=== PATIENT | female | born 1955 | race Caucasian/White ===

== ENCOUNTER 2016-05-13 17:15 | Observation (INO) | payer BC ==
[~2016-05-13] VITALS: Ht 154.9 cm; Wt 49.9 kg
[~2016-05-13 17:15] MED LIST: ATORVASTATIN CA20 MG PO; CLOPIDOGREL75 MG PO; FLONASE16 G1 BOTH NARES; GABAPENTIN300 MG PO; LO-DOSE ASPIRIN81 M2 PO; MONTELUKAST SOD10 MG PO; PROAIR HFA8.5 GM IH; SPIRIVA RESPIMAT4 GM IH; SYMBICORT60 INHALAT IH; TRAMADOL HCL50 MG PO; [UNRECOGNIZED DRUG - REMARK] PO
[2016-05-13 17:36] LABS: HEMATOCRIT 41.2 % (36.0-46.0); MCH 30.2 PG (29.0-34.0); MCHC 33.3 G/DL (30.0-36.0); MCV 90.7 FL (83-99); MEAN PLAT.VOLUME 8.8 uM^3 (9.5-12.4); PLATELET COUNT 382 K/uL (156-360); RBC DIS.WIDTH-CV 12.8 % (11.8-14.6); RBC DIS.WIDTH-SD 42.2 % (39-53); RED BLOOD COUNT 4.54 M/uL (3.80-5.20); WHITE BLOOD COUNT 7.6 K/uL (4.1-10.2)
[2016-05-13 17:53] LABS: CHLORIDE 100 mEq/L (99-109); POTASSIUM 3.6 mEq/L (3.7-5.4); SODIUM 140 mEq/L (136-147)
[2016-05-13 17:55] LABS: GLUCOSE 99 mg/dL (70-99)
[2016-05-13 17:56] LABS: ANION GAP 10 MEQ/L (2-14)
[2016-05-13 17:59] LABS: GFR ESTIMATE (CALCULATED) > 59 mL/min/
[2016-05-13 18:00] LABS: UREA NITROGEN (BUN) 9 mg/dL (9-23)
[2016-05-13 18:03] LABS: TROP-I INTERPRETATION NEGATIVE; TROPONIN-I < 0.01 ng/mL (0.0-0.30)
[2016-05-13 20:10] LABS: LIPASE 29 U/L (1.0-51.0)
[2016-05-13 20:55] VITALS: BP 133/72
[2016-05-13 23:59] LABS: TROP-I INTERPRETATION NEGATIVE; TROPONIN-I < 0.01 ng/mL (0.0-0.30)
[2016-05-14 00:10] VITALS: BP 107/56
[2016-05-14 04:09] VITALS: BP 107/57
[2016-05-14 06:30] LABS: TROP-I INTERPRETATION NEGATIVE; TROPONIN-I < 0.01 ng/mL (0.0-0.30)
[2016-05-14 07:44] VITALS: BP 115/56
[2016-05-14] MEDS ORDERED: LOPRESSOR25 MG PO (09:57)
== END 2016-05-14 11:33 | disposition home or self-care (01) ==
LOC: EME 17:15 → 5WEST 19:01 → EDOF 19:01 → 5WEST 20:03
PROVIDERS: Hospitalist
DX: R07.89 Other chest pain (principal); I25.10 Atherosclerotic heart disease of native coronary artery without angina pectoris; I10 Essential (primary) hypertension; J44.9 Chronic obstructive pulmonary disease, unspecified; E78.5 Hyperlipidemia, unspecified; F17.210 Nicotine dependence, cigarettes, uncomplicated; Z95.5 Presence of coronary angioplasty implant and graft
CPT/HCPCS: 71020; 80048; 83690; 84484; 85027; 93005; 94640; 99202; 99281; 99285; G0378

== ENCOUNTER 2016-05-23 11:50 | Observation (INO) | payer BC ==
[~2016-05-23] VITALS: Ht 154.9 cm; Wt 57.4 kg
[~2016-05-23 11:50] MED LIST changes: +LOPRESSOR25 MG PO
[2016-05-23 12:53] LABS: EOSINOPHIL (%) 1.4 % (0-5); EOSINOPHIL COUNT 0.1 K/uL (0-0.3); HEMATOCRIT 38.2 % (36.0-46.0); IMMATURE GRANULOCYTE (%) 0.3 % (0.0-0.7); LYMPHOCYTE COUNT 1.7 K/uL (1.0-2.8); MCH 30.2 PG (29.0-34.0); MCHC 33.2 G/DL (30.0-36.0); MCV 90.7 FL (83-99); MEAN PLAT.VOLUME 10.1 uM^3 (9.5-12.4); MONOCYTE (%) 8.2 % (3-12); MONOCYTE COUNT 0.8 K/uL (0-0.8); NEUTROPHIL (%) 72.3 % (45-76); PLATELET COUNT 276 K/uL (156-360); RBC DIS.WIDTH-CV 12.9 % (11.8-14.6); RBC DIS.WIDTH-SD 42.2 % (39-53); RED BLOOD COUNT 4.21 M/uL (3.80-5.20); WHITE BLOOD COUNT 9.7 K/uL (4.1-10.2)
[2016-05-23 13:00] LABS: CHLORIDE 98 mEq/L (99-109); POTASSIUM 3.4 mEq/L (3.7-5.4); SODIUM 136 mEq/L (136-147)
[2016-05-23 13:01] LABS: MAGNESIUM 2.1 mg/dL (1.3-2.7)
[2016-05-23 13:02] LABS: GLUCOSE 82 mg/dL (70-99)
[2016-05-23 13:03] LABS: ANION GAP 11 MEQ/L (2-14)
[2016-05-23 13:06] LABS: GFR ESTIMATE (CALCULATED) > 59 mL/min/
[2016-05-23 13:07] LABS: UREA NITROGEN (BUN) 9 mg/dL (9-23)
[2016-05-23 13:13] LABS: PROTHROMBIN TIME 10.5 (9.2-11.2); PTT 26.4 (25-32); TROP-I INTERPRETATION NEGATIVE; TROPONIN-I < 0.01 ng/mL (0.0-0.30)
[2016-05-23 15:04] LABS: INFLUENZA A VIRAL ANTIGEN NEGATIVE; INFLUENZA B VIRAL ANTIGEN NEGATIVE
[2016-05-23] MEDS ORDERED: LOPRESSOR25 MG PO (15:18)
[2016-05-23] MEDS ORDERED: NORVASC5 MG PO (15:19)
[2016-05-23] MEDS ORDERED: SINGULAIR10 MG PO (15:26)
[2016-05-23] MEDS ORDERED: HYDROCHLOROTHIA25 MG PO (15:27)
[2016-05-23 17:11] VITALS: BP 101/52
[2016-05-23 19:40] VITALS: BP 108/57
[2016-05-23 19:53] LABS: TROP-I INTERPRETATION NEGATIVE; TROPONIN-I < 0.01 ng/mL (0.0-0.30)
[2016-05-24 00:45] VITALS: BP 121/68
[2016-05-24 01:18] LABS: TROP-I INTERPRETATION NEGATIVE; TROPONIN-I < 0.01 ng/mL (0.0-0.30)
[2016-05-24 07:27] VITALS: BP 110/68
[2016-05-24 08:00] VITALS: BP 133/79
[2016-05-24 10:39] VITALS: BP 134/69
== END 2016-05-24 13:28 | disposition home or self-care (01) ==
LOC: EME → EDBD 11:50 → 5WEST 15:49 → EDOF 15:49 → 5WEST 16:48
PROVIDERS: Emergency Medicine; Internal Medicine
DX: R07.89 Other chest pain (principal); E87.6 Hypokalemia; J44.9 Chronic obstructive pulmonary disease, unspecified; I25.10 Atherosclerotic heart disease of native coronary artery without angina pectoris; Z95.1 Presence of aortocoronary bypass graft; I10 Essential (primary) hypertension; E78.5 Hyperlipidemia, unspecified; F17.200 Nicotine dependence, unspecified, uncomplicated
CPT/HCPCS: 71010; 80048; 83735; 84484; 85025; 85610; 85730; 87502; 93005; 94640; 99202; 99281; 99285; G0378; J7512

== ENCOUNTER 2016-06-11 22:53 | Inpatient (IN) | payer BC ==
[~2016-06-11] VITALS: Ht 154.9 cm; Wt 51.3 kg
[~2016-06-11 22:53] MED LIST changes: +HYDROCHLOROTHIA25 MG PO; +NORVASC5 MG PO; +SINGULAIR10 MG PO
[2016-06-11 23:28] LABS: HEMATOCRIT 36.1 % (36.0-46.0); MCH 30.1 PG (29.0-34.0); MCHC 34.6 G/DL (30.0-36.0); MEAN PLAT.VOLUME 9.3 uM^3 (9.5-12.4); PLATELET COUNT 338 K/uL (156-360); RBC DIS.WIDTH-CV 12.9 % (11.8-14.6); RBC DIS.WIDTH-SD 40.5 % (39-53); RED BLOOD COUNT 4.15 M/uL (3.80-5.20)
[2016-06-11 23:31] LABS: WHITE BLOOD COUNT 8.8 K/uL (4.1-10.2)
[2016-06-11 23:43] LABS: CHLORIDE 88 mEq/L (99-109); POTASSIUM 3.4 mEq/L (3.7-5.4); SODIUM 131 mEq/L (136-147)
[2016-06-11 23:45] LABS: GLUCOSE 123 mg/dL (70-99)
[2016-06-11 23:46] LABS: ANION GAP 11 MEQ/L (2-14)
[2016-06-11 23:47] LABS: TOTAL BILIRUBIN 0.4 mg/dL (0.0-1.0)
[2016-06-11 23:49] LABS: ALKALINE PHOSPHATASE 94 IU/L (3-129); GFR ESTIMATE (CALCULATED) > 59 mL/min/
[2016-06-11 23:50] LABS: UREA NITROGEN (BUN) 8 mg/dL (9-23)
[2016-06-11 23:52] LABS: LIPASE 13 U/L (1.0-51.0)
[2016-06-11 23:53] LABS: TROP-I INTERPRETATION NEGATIVE; TROPONIN-I < 0.01 ng/mL (0.0-0.30)
[2016-06-12] MEDS ORDERED: ERGOCALCIF50000 UNIT PO (00:26)
[2016-06-12] MEDS ORDERED: ULTRAM50 MG PO (00:26)
[2016-06-12] MEDS ORDERED: FLONASE16 G1 BOTH NARES (00:27)
[2016-06-12 04:18] VITALS: BP 129/78
[2016-06-12 06:53] LABS: ANION GAP 13 MEQ/L (2-14); CHLORIDE 85 MEQ/L (99-109); GFR ESTIMATE (CALCULATED) > 59 mL/min/; POTASSIUM 3.3 MEQ/L (3.7-5.4); SAMPLE HEMOLYSIS CHECK 0; SAMPLE ICTERIC CHECK 0; SAMPLE LIPEMIA CHECK 0; SODIUM 128 MEQ/L (136-147); UREA NITROGEN (BUN) 10 mg/dL (9-23)
[2016-06-12 07:01] LABS: GLUCOSE 235 mg/dL (70-99)
[2016-06-12 08:45] VITALS: BP 112/62
[2016-06-12 08:59] LABS: ADD MIUA? YES; BILIRUBIN NEGATIVE; BLOOD MODERATE; COLOR YELLOW ((YELLOW)); GLUCOSE (STRIP) 150; KETONES 5; LEUKOCYTES NEGATIVE; NITRITE NEGATIVE; PROTEIN (STRIP) NEGATIVE; SPECIFIC GRAVITY 1.012 (1.000-1.030); UROBILINOGEN 0.2 MG/DL (0.2-1.0)
[2016-06-12 09:18] LABS: BACTERIA NONE SEEN /HPF; EPITHELIAL CELLS RARE /HPF; HYALINE CASTS 20-30 /LPF; MUCUS TRACE /LPF; WHITE BLOOD CELLS 0-5 /HPF (0-5)
[2016-06-12 12:19] VITALS: BP 118/60
[2016-06-12 17:05] VITALS: BP 124/58
[2016-06-12 20:27] VITALS: BP 119/57
[2016-06-12 23:42] VITALS: BP 109/53
[2016-06-13 03:56] VITALS: BP 105/53
[2016-06-13 08:40] VITALS: BP 110/59
[2016-06-13 09:56] LABS: HEMATOCRIT 34.7 % (36.0-46.0); MCH 30.3 PG (29.0-34.0); MCHC 34.3 G/DL (30.0-36.0); MCV 88.3 FL (83-99); MEAN PLAT.VOLUME 9.3 uM^3 (9.5-12.4); PLATELET COUNT 413 K/uL (156-360); RBC DIS.WIDTH-CV 13.1 % (11.8-14.6); RBC DIS.WIDTH-SD 42.7 % (39-53); RED BLOOD COUNT 3.93 M/uL (3.80-5.20)
[2016-06-13 10:12] LABS: ANION GAP 9 MEQ/L (2-14); CHLORIDE 91 MEQ/L (99-109); GFR ESTIMATE (CALCULATED) > 59 mL/min/; GLUCOSE 126 mg/dL (70-99); POTASSIUM 3.7 MEQ/L (3.7-5.4); SAMPLE HEMOLYSIS CHECK 0; SAMPLE ICTERIC CHECK 0; SAMPLE LIPEMIA CHECK 0; SODIUM 135 MEQ/L (136-147); UREA NITROGEN (BUN) 15 mg/dL (9-23)
[2016-06-13 10:16] LABS: WHITE BLOOD COUNT 21.1 K/uL (4.1-10.2)
[2016-06-13 11:43] VITALS: BP 101/57
[2016-06-13 15:45] VITALS: BP 104/58
[2016-06-13 19:00] VITALS: BP 101/56
[2016-06-13 23:58] VITALS: BP 137/64
[2016-06-14 03:51] VITALS: BP 108/60
[2016-06-14 08:40] VITALS: BP 115/56
[2016-06-14 11:37] VITALS: BP 97/54
[2016-06-14 13:09] LABS: HEMATOCRIT 34.8 % (36.0-46.0); MCH 30.1 PG (29.0-34.0); MCHC 33.3 G/DL (30.0-36.0); MCV 90.2 FL (83-99); MEAN PLAT.VOLUME 9.2 uM^3 (9.5-12.4); PLATELET COUNT 400 K/uL (156-360); RBC DIS.WIDTH-CV 13.2 % (11.8-14.6); RBC DIS.WIDTH-SD 43.6 % (39-53); RED BLOOD COUNT 3.86 M/uL (3.80-5.20); WHITE BLOOD COUNT 14.8 K/uL (4.1-10.2)
[2016-06-14] MEDS ORDERED: LEVOFLOXACIN750 MG PO (14:16)
[2016-06-14] MEDS ORDERED: PREDNISONE10 MG PO (14:16)
== END 2016-06-14 15:31 | disposition home or self-care (01) | DRG 191 ==
LOC: EME → EDBD 22:53 → EME 22:53 → EDOF 06-12 03:20 → 5WEST 06-12 03:20
PROVIDERS: Emergency Medicine; Hospitalist; Nurse Practitioner Family
DX: J44.1 Chronic obstructive pulmonary disease with (acute) exacerbation (principal); J44.0 Chronic obstructive pulmonary disease with (acute) lower respiratory infection; J20.9 Acute bronchitis, unspecified; E87.6 Hypokalemia; E87.1 Hypo-osmolality and hyponatremia; E87.2 Acidosis; I25.10 Atherosclerotic heart disease of native coronary artery without angina pectoris; I25.2 Old myocardial infarction; J45.909 Unspecified asthma, uncomplicated; E78.5 Hyperlipidemia, unspecified; M79.7 Fibromyalgia; F17.210 Nicotine dependence, cigarettes, uncomplicated; Z95.1 Presence of aortocoronary bypass graft; Z95.5 Presence of coronary angioplasty implant and graft; Z71.6 Tobacco abuse counseling; Z79.02 Long term (current) use of antithrombotics/antiplatelets; Z79.82 Long term (current) use of aspirin
CPT/HCPCS: 71010; 80048; 80053; 81003; 82436; 82803; 83690; 83880; 83930; 84133; 84300; 84484; 85027; 87070; 87205; 93005; 94640; 94640 76; 94644; 94799; 99202; 99281; 99285; J1100; J1650; J2930; J3475; J7644

== ENCOUNTER 2016-10-11 18:05 | Inpatient (IN) | payer OTHER ==
[~2016-10-11 18:05] MED LIST changes: +ERGOCALCIF50000 UNIT PO; +LEVOFLOXACIN750 MG PO; +PREDNISONE10 MG PO; +ULTRAM50 MG PO
[2016-10-11 19:38] LABS: EOSINOPHIL (%) 0.3 % (0-5); EOSINOPHIL COUNT 0.1 K/uL (0-0.3); HEMATOCRIT 37.3 % (36.0-46.0); IMMATURE GRANULOCYTE (%) 0.5 % (0.0-0.7); IMMATURE GRANULOCYTE COUNT 0.1 K/uL; INSTRUMENT ABS NEUTROPHIL CT 16.9 K/uL; LYMPHOCYTE COUNT 1.2 K/uL (1.0-2.8); MCH 29.8 PG (29.0-34.0); MCHC 34.3 G/DL (30.0-36.0); MCV 86.9 FL (83-99); MEAN PLAT.VOLUME 9.7 uM^3 (9.5-12.4); MONOCYTE (%) 7.8 % (3-12); MONOCYTE COUNT 1.5 K/uL (0-0.8); NEUTROPHIL (%) 84.9 % (45-76); NEUTROPHIL COUNT 16.9 K/uL (1.8-6.4); PLATELET COUNT 244 K/uL (156-360); RBC DIS.WIDTH-CV 15.9 % (11.8-14.6); RBC DIS.WIDTH-SD 50.1 % (39-53); RED BLOOD COUNT 4.29 M/uL (3.80-5.20); WHITE BLOOD COUNT 19.8 K/uL (4.1-10.2)
[2016-10-11 19:45] LABS: CHLORIDE 90 mEq/L (99-109); POTASSIUM 3.2 mEq/L (3.7-5.4); SODIUM 129 mEq/L (136-147)
[2016-10-11 19:46] LABS: GLUCOSE 154 mg/dL (70-99)
[2016-10-11 19:48] LABS: ANION GAP 11 MEQ/L (2-14)
[2016-10-11 19:50] LABS: GFR ESTIMATE (CALCULATED) > 59 mL/min/
[2016-10-11 19:51] LABS: UREA NITROGEN (BUN) 11 mg/dL (9-23)
[2016-10-11 19:57] LABS: TROP-I INTERPRETATION NEGATIVE; TROPONIN-I < 0.01 ng/mL (0.0-0.30)
[2016-10-11 20:08] LABS: BASE EXCESS 0.9 mEq/L (-3 to +3); BICARBONATE 29.4 mEq/L (22-26); PCO2 64 mm Hg (35-45); PO2 51 mm Hg (80-100)
[2016-10-11 20:09] LABS: COMMENTS - BLOOD GASES A+C+; DEVICE NC; O2 FLOW 4 L/MIN; SITE RR; pH 7.27 (7.35-7.45)
[2016-10-12] VITALS (23 sets, daily range): BP systolic 84–151; BP diastolic 52–88
[2016-10-12 01:51] LABS: METH RESISTANT S AUREUS PCR NEGATIVE (NEGATIVE)
[2016-10-12 01:55] LABS: PROBE CHECK PASS; SPECIMEN PROCESSING CONTROL PASS
[2016-10-12 02:46] LABS: POINT-OF-CARE METER ID UU14208751
[2016-10-12] MEDS ORDERED: SPIRIVA RESPIMAT4 G1 IH (05:03)
[2016-10-12] MEDS ORDERED: LIPITOR20 MG PO (05:04)
[2016-10-12] MEDS ORDERED: SINGULAIR10 MG PO (05:04)
[2016-10-12] MEDS ORDERED: NORVASC5 MG PO (05:05)
[2016-10-12] MEDS ORDERED: PLAVIX75 MG PO (05:07)
[2016-10-12] MEDS ORDERED: SYMBICORT60 INHALA1 IH (05:07)
[2016-10-12] MEDS ORDERED: FLONASE16 G1 BOTH NARES (05:09)
[2016-10-12] MEDS ORDERED: HYDROCHLOROTHIA25 MG PO (05:09)
[2016-10-12] MEDS ORDERED: NEURONTIN300 MG PO (05:09)
[2016-10-12] MEDS ORDERED: ASPIR 8181 M1 PO (05:10)
[2016-10-12] MEDS ORDERED: ZYRTEC10 M2 PO (05:10)
[2016-10-12 06:03] LABS: HEMATOCRIT 34.6 % (36.0-46.0); MCH 29.5 PG (29.0-34.0); MCHC 32.7 G/DL (30.0-36.0); MCV 90.3 FL (83-99); MEAN PLAT.VOLUME 10.3 uM^3 (9.5-12.4); PLATELET COUNT 221 K/uL (156-360); RBC DIS.WIDTH-CV 15.9 % (11.8-14.6); RED BLOOD COUNT 3.83 M/uL (3.80-5.20); WHITE BLOOD COUNT 13.3 K/uL (4.1-10.2)
[2016-10-12 06:19] LABS: BASE EXCESS 2.4 mEq/L (-3 to +3); BICARBONATE 30.3 mEq/L (22-26); COMMENTS - BLOOD GASES A+C+; DEVICE VENT; FI02 50 %; MECHANICAL RATE 18 resp/min; METHEMOGLOBIN 1.2 % (0-1.5); MODE A/C; PCO2 63 mm Hg (35-45); PEEP 5 CM/H20; PO2 127 mm Hg (80-100); SITE RR; TIDAL VOLUME 350 ML; TOTAL RESP RATE 18 resp/min; pH 7.29 (7.35-7.45)
[2016-10-12 06:30] LABS: ANION GAP 8 MEQ/L (2-14); CHLORIDE 96 MEQ/L (99-109); GFR ESTIMATE (CALCULATED) > 59 mL/min/; GLUCOSE 161 mg/dL (70-99); MAGNESIUM 2.2 mg/dl (1.3-2.7); POTASSIUM 3.4 MEQ/L (3.7-5.4); SAMPLE HEMOLYSIS CHECK 0; SAMPLE ICTERIC CHECK 0; SAMPLE LIPEMIA CHECK 0; SODIUM 133 MEQ/L (136-147); UREA NITROGEN (BUN) 9 mg/dL (9-23)
[2016-10-12 06:34] LABS: POINT-OF-CARE METER ID UU14208751
[2016-10-12 13:22] LABS: BICARBONATE 27.9 mEq/L (22-26); CARBOXY HGB 2.1 % (0-5); METHEMOGLOBIN 1.7 % (0-1.5); pH 7.42 (7.35-7.45)
[2016-10-12 13:23] LABS: COMMENTS - BLOOD GASES A+C+; DEVICE VENT; FI02 30 %; MECHANICAL RATE 20 resp/min; MODE AC; PCO2 43 mm Hg (35-45); PEEP 5 CM/H20; PO2 57 mm Hg (80-100); SITE RR; TIDAL VOLUME 450 ML; TOTAL RESP RATE 20 resp/min
[2016-10-12 13:26] LABS: POINT-OF-CARE METER ID UU14174217
[2016-10-12 14:04] LABS: ADD MIUA? YES; BILIRUBIN NEGATIVE; BLOOD MODERATE; COLOR YELLOW ((YELLOW)); GLUCOSE (STRIP) NEGATIVE; KETONES NEGATIVE; LEUKOCYTES NEGATIVE; NITRITE NEGATIVE; PROTEIN (STRIP) 30; SPECIFIC GRAVITY 1.026 (1.000-1.030); UROBILINOGEN 0.2 MG/DL (0.2-1.0)
[2016-10-12 14:09] LABS: BACTERIA RARE /HPF; EPITHELIAL CELLS RARE /HPF; HYALINE CASTS 20-30 /LPF; MUCUS 2+ /LPF; RED BLOOD CELLS TNTC /HPF (0-5); WHITE BLOOD CELLS 0-5 /HPF (0-5)
[2016-10-12 17:33] LABS: POINT-OF-CARE METER ID UU14174217
[2016-10-12 23:37] LABS: POINT-OF-CARE METER ID UU13113731
[2016-10-13] VITALS (25 sets, daily range): BP systolic 86–146; BP diastolic 52–97
[2016-10-13 05:45] LABS: HEMATOCRIT 29.6 % (36.0-46.0); MCHC 34.1 G/DL (30.0-36.0); MCV 87.8 FL (83-99); MEAN PLAT.VOLUME 10.3 uM^3 (9.5-12.4); PLATELET COUNT 238 K/uL (156-360); RBC DIS.WIDTH-CV 16.6 % (11.8-14.6); RBC DIS.WIDTH-SD 53.6 % (39-53); RED BLOOD COUNT 3.37 M/uL (3.80-5.20); WHITE BLOOD COUNT 10.9 K/uL (4.1-10.2)
[2016-10-13 05:48] LABS: POINT-OF-CARE METER ID UU14162636
[2016-10-13 06:09] LABS: ANION GAP 7 MEQ/L (2-14); CHLORIDE 97 MEQ/L (99-109); GFR ESTIMATE (CALCULATED) > 59 mL/min/; GLUCOSE 163 mg/dL (70-99); MAGNESIUM 2.3 mg/dl (1.3-2.7); POTASSIUM 3.7 MEQ/L (3.7-5.4); SAMPLE HEMOLYSIS CHECK 0; SAMPLE ICTERIC CHECK 0; SAMPLE LIPEMIA CHECK 0; SODIUM 131 MEQ/L (136-147); UREA NITROGEN (BUN) 15 mg/dL (9-23)
[2016-10-13 12:07] LABS: POINT-OF-CARE METER ID UU14162636
[2016-10-14] VITALS (14 sets, daily range): BP systolic 120–155; BP diastolic 65–87
[2016-10-14 06:03] LABS: EOSINOPHIL (%) 0 % (0-5); HEMATOCRIT 31.6 % (36.0-46.0); IMMATURE GRANULOCYTE COUNT 0.3 K/uL; INSTRUMENT ABS NEUTROPHIL CT 15.3 K/uL; LYMPHOCYTE COUNT 0.5 K/uL (1.0-2.8); MCH 30.6 PG (29.0-34.0); MCHC 34.2 G/DL (30.0-36.0); MCV 89.5 FL (83-99); MEAN PLAT.VOLUME 9.8 uM^3 (9.5-12.4); MONOCYTE (%) 4.2 % (3-12); MONOCYTE COUNT 0.7 K/uL (0-0.8); NEUTROPHIL (%) 90.6 % (45-76); NEUTROPHIL COUNT 15.3 K/uL (1.8-6.4); PLATELET COUNT 290 K/uL (156-360); RBC DIS.WIDTH-CV 17.4 % (11.8-14.6); RBC DIS.WIDTH-SD 57.2 % (39-53); RED BLOOD COUNT 3.53 M/uL (3.80-5.20); WHITE BLOOD COUNT 16.9 K/uL (4.1-10.2)
[2016-10-14 06:39] LABS: ANION GAP 2 MEQ/L (2-14); CHLORIDE 104 MEQ/L (99-109); GFR ESTIMATE (CALCULATED) > 59 mL/min/; MAGNESIUM 2.4 mg/dl (1.3-2.7); SAMPLE HEMOLYSIS CHECK 0; SAMPLE ICTERIC CHECK 0; SAMPLE LIPEMIA CHECK 0; UREA NITROGEN (BUN) 15 mg/dL (9-23)
[2016-10-14 06:47] LABS: GLUCOSE 110 mg/dL (70-99); POTASSIUM 4.9 MEQ/L (3.7-5.4); SODIUM 140 MEQ/L (136-147)
[2016-10-14 13:25] LABS: INTERNAL CONTROL VALID? YES
[2016-10-14 13:26] LABS: INTERNAL CONTROL VALID? YES
[2016-10-15 06:55] LABS: HEMATOCRIT 33.6 % (36.0-46.0); MCH 29.5 PG (29.0-34.0); MCHC 32.7 G/DL (30.0-36.0); MCV 90.1 FL (83-99); MEAN PLAT.VOLUME 9.3 uM^3 (9.5-12.4); PLATELET COUNT 288 K/uL (156-360); RBC DIS.WIDTH-CV 17.3 % (11.8-14.6); RBC DIS.WIDTH-SD 57.9 % (39-53); RED BLOOD COUNT 3.73 M/uL (3.80-5.20); WHITE BLOOD COUNT 12.3 K/uL (4.1-10.2)
[2016-10-15 07:21] LABS: ANION GAP 5 MEQ/L (2-14); CHLORIDE 102 MEQ/L (99-109); GFR ESTIMATE (CALCULATED) > 59 mL/min/; GLUCOSE 101 mg/dL (70-99); MAGNESIUM 2.2 mg/dl (1.3-2.7); SAMPLE HEMOLYSIS CHECK 0; SAMPLE ICTERIC CHECK 0; SAMPLE LIPEMIA CHECK 0; SODIUM 141 MEQ/L (136-147); UREA NITROGEN (BUN) 12 mg/dL (9-23)
[2016-10-15 08:15] VITALS: BP 140/78
[2016-10-15 11:45] VITALS: BP 159/68
[2016-10-15 15:57] VITALS: BP 159/90
[2016-10-15 22:47] VITALS: BP 155/73
[2016-10-16 03:03] VITALS: BP 136/78
[2016-10-16 06:51] LABS: HEMATOCRIT 35.5 % (36.0-46.0); MCH 30.3 PG (29.0-34.0); MCHC 33.5 G/DL (30.0-36.0); MCV 90.3 FL (83-99); MEAN PLAT.VOLUME 9.6 uM^3 (9.5-12.4); PLATELET COUNT 288 K/uL (156-360); RBC DIS.WIDTH-CV 17.4 % (11.8-14.6); RBC DIS.WIDTH-SD 58.4 % (39-53); RED BLOOD COUNT 3.93 M/uL (3.80-5.20); WHITE BLOOD COUNT 10.7 K/uL (4.1-10.2)
[2016-10-16 07:15] VITALS: BP 144/77
[2016-10-16 07:46] LABS: ANION GAP 6 MEQ/L (2-14); CHLORIDE 102 MEQ/L (99-109); GFR ESTIMATE (CALCULATED) > 59 mL/min/; GLUCOSE 106 mg/dL (70-99); MAGNESIUM 2.1 mg/dl (1.3-2.7); POTASSIUM 5.1 MEQ/L (3.7-5.4); SAMPLE HEMOLYSIS CHECK 0; SAMPLE ICTERIC CHECK 0; SAMPLE LIPEMIA CHECK 0; SODIUM 140 MEQ/L (136-147); UREA NITROGEN (BUN) 10 mg/dL (9-23)
[2016-10-16 11:20] VITALS: BP 131/71
[2016-10-16 15:25] VITALS: BP 134/75
[2016-10-16 19:57] VITALS: BP 146/73
[2016-10-17 00:35] VITALS: BP 153/74
[2016-10-17 06:15] VITALS: BP 136/77
[2016-10-17 06:30] LABS: HEMATOCRIT 34.9 % (36.0-46.0); MCH 30.3 PG (29.0-34.0); MCHC 34.1 G/DL (30.0-36.0); MCV 88.8 FL (83-99); MEAN PLAT.VOLUME 9.3 uM^3 (9.5-12.4); PLATELET COUNT 290 K/uL (156-360); RBC DIS.WIDTH-CV 17.2 % (11.8-14.6); RBC DIS.WIDTH-SD 56.3 % (39-53); RED BLOOD COUNT 3.93 M/uL (3.80-5.20); WHITE BLOOD COUNT 12.2 K/uL (4.1-10.2)
[2016-10-17 06:58] LABS: ANION GAP 7 MEQ/L (2-14); CHLORIDE 102 MEQ/L (99-109); GFR ESTIMATE (CALCULATED) > 59 mL/min/; GLUCOSE 90 mg/dL (70-99); POTASSIUM 4.5 MEQ/L (3.7-5.4); SAMPLE HEMOLYSIS CHECK 0; SAMPLE ICTERIC CHECK 0; SAMPLE LIPEMIA CHECK 0; SODIUM 139 MEQ/L (136-147); UREA NITROGEN (BUN) 10 mg/dL (9-23)
[2016-10-17 07:45] VITALS: BP 158/91
[2016-10-17] MEDS ORDERED: DUONEB 2.5-0.5 M3 ML AEROSOL (10:59)
[2016-10-17] MEDS ORDERED: LEVOFLOXACIN500 MG PO (10:59)
[2016-10-17] MEDS ORDERED: PREDNISONE10 MG PO (10:59)
== END 2016-10-17 13:50 | disposition home or self-care (01) | DRG 208 ==
LOC: EME 18:05 → ENRESERV 22:30 → EDOF 22:30 → 5EAST 22:30 → 4WEST 22:30 → ENRESERV 22:53 → 4WEST 23:53 → ENRESERV 10-14 16:18 → 5EAST 10-14 20:31 → ENPENDDIS 10-17 → 5EAST 10-17 13:50
PROVIDERS: Emergency Medicine; Internal Medicine Critical Care Medicine
PROC: 5A1945Z Respiratory Ventilation, 24-96 Consecutive Hours (ICD-10-PCS; principal; 2016-10-11)
PROC: 0BH17EZ Insertion of Endotracheal Airway into Trachea, Via Natural or Artificial Opening (ICD-10-PCS; 2016-10-11)
DX: J96.21 Acute and chronic respiratory failure with hypoxia (principal); J96.22 Acute and chronic respiratory failure with hypercapnia; J44.1 Chronic obstructive pulmonary disease with (acute) exacerbation; J44.0 Chronic obstructive pulmonary disease with (acute) lower respiratory infection; J20.9 Acute bronchitis, unspecified; E87.2 Acidosis; E87.1 Hypo-osmolality and hyponatremia; E87.6 Hypokalemia; R73.9 Hyperglycemia, unspecified; E78.5 Hyperlipidemia, unspecified; I10 Essential (primary) hypertension; F32.9 Major depressive disorder, single episode, unspecified; F41.9 Anxiety disorder, unspecified; I25.10 Atherosclerotic heart disease of native coronary artery without angina pectoris; K21.9 Gastro-esophageal reflux disease without esophagitis; G43.909 Migraine, unspecified, not intractable, without status migrainosus; F17.200 Nicotine dependence, unspecified, uncomplicated; R64 Cachexia; Z68.1 Body mass index [BMI] 19.9 or less, adult; Z88.0 Allergy status to penicillin; Z95.1 Presence of aortocoronary bypass graft; I25.2 Old myocardial infarction; Z79.02 Long term (current) use of antithrombotics/antiplatelets; Z79.82 Long term (current) use of aspirin
CPT/HCPCS: 36600; 71010; 80048; 81003; 82306; 82803; 82948; 83605; 83735; 83880; 83935; 84100; 84300; 84484; 85025; 85027; 87040; 87070; 87077; 87181; 87185; 87205; 87449; 87641; 93005; 94002; 94003; 94640; 94640 76; 94644; 94760; 94799; 99202; 99281; 99285; J1100; J1650; J1815; J1956; J2060; J2250; J2704; J2765; J2920; J2930; J3010; J3475; J7120; J7512; J7644; S0028

== ENCOUNTER 2017-04-13 19:12 | Inpatient (IN) | payer OTHER ==
[~2017-04-13] VITALS: Ht 152.4 cm; Wt 46.1 kg
[~2017-04-13 19:12] MED LIST changes: +ASPIR 8181 M1 PO; +DUONEB 2.5-0.5 M3 ML AEROSOL; +LEVOFLOXACIN500 MG PO; +LIPITOR20 MG PO; +NEURONTIN300 MG PO; +PLAVIX75 MG PO; +SPIRIVA RESPIMAT4 G1 IH; +SYMBICORT60 INHALA1 IH; +ZYRTEC10 M3 PO
[2017-04-13 19:35] LABS: HEMATOCRIT 38.9 % (36.0-46.0); HEMOGLOBIN 13.6 G/DL (11.9-15.5); MCH 30.6 PG (29.0-34.0); MCV 87.6 FL (83-99); PLATELET COUNT 177 K/uL (156-360); RBC DIS.WIDTH-CV 14.5 % (11.8-14.6); RBC DIS.WIDTH-SD 46.8 % (39-53); RED BLOOD COUNT 4.44 M/uL (3.80-5.20); WHITE BLOOD COUNT 6.4 K/uL (4.1-10.2)
[2017-04-13 19:53] LABS: CHLORIDE 93 MEQ/L (99-109); POTASSIUM 3.5 MEQ/L (3.7-5.4); SODIUM 129 MEQ/L (136-147)
[2017-04-13 19:59] LABS: CREATININE 0.8 MG/DL (0.6-1.3); GFR ESTIMATE (CALCULATED) > 59 mL/min/; GLUCOSE 139 mg/dL (70-99); UREA NITROGEN (BUN) 11 mg/dL (9-23)
[2017-04-13 20:18] LABS: BASE EXCESS 2.1 mEq/L (-3 to +3); CARBOXY HGB 2.1 % (0-5); COMMENTS - BLOOD GASES C+A+; DEVICE NEB TREATMENT; O2 FLOW 7 L/MIN; PCO2 61 mm Hg (35-45); PO2 183 mm Hg (80-100); SITE RR
[2017-04-13 20:37] LABS: TROP-I INTERPRETATION NEGATIVE; TROPONIN-I < 0.01 ng/mL (0.0-0.30)
[2017-04-13 21:45] LABS: BASE EXCESS 2.5 mEq/L (-3 to +3); BICARBONATE 28.8 mEq/L (22-26); CARBOXY HGB 2.2 % (0-5); METHEMOGLOBIN 0.6 % (0-1.5); PCO2 51 mm Hg (35-45); pH 7.36 (7.35-7.45)
[2017-04-13 21:46] LABS: COMMENTS - BLOOD GASES C+A+; DEVICE HHFNC; FI02 30 %; O2 FLOW 45 L/MIN; PO2 103 mm Hg (80-100); SITE RB
[2017-04-13] MEDS ORDERED: DUONEB 2.5-0.5 M3 ML AEROSOL (21:49)
[2017-04-13] MEDS ORDERED: GABAPENTIN300 MG PO (21:51)
[2017-04-13] MEDS ORDERED: VOLTAREN75 MG PO (21:52)
[2017-04-13] MEDS ORDERED: TYLENOL EXTRA500 MG PO (21:52)
[2017-04-13] MEDS ORDERED: ALEVE220 MG PO (21:52)
[2017-04-13] MEDS ORDERED: VENTOLIN HFA18 GM IH (21:53)
[2017-04-13] MEDS ORDERED: LOPRESSOR25 MG PO (21:53)
[2017-04-13] MEDS ORDERED: ZANTAC150 MG PO (21:53)
[2017-04-13] MEDS ORDERED: ERGOCALCIF50000 UNIT PO (21:54)
[2017-04-14] VITALS: BP 123/64
[2017-04-14 04:18] VITALS: BP 119/62
[2017-04-14 07:06] LABS: HEMATOCRIT 35.4 % (36.0-46.0); HEMOGLOBIN 12.2 G/DL (11.9-15.5); MCH 30.5 PG (29.0-34.0); MCHC 34.5 G/DL (30.0-36.0); MCV 88.5 FL (83-99); PLATELET COUNT 147 K/uL (156-360); RBC DIS.WIDTH-CV 14.4 % (11.8-14.6); RBC DIS.WIDTH-SD 46.3 % (39-53); WHITE BLOOD COUNT 2.8 K/uL (4.1-10.2)
[2017-04-14 07:31] LABS: CHLORIDE 92 MEQ/L (99-109); CREATININE 0.7 MG/DL (0.6-1.3); GFR ESTIMATE (CALCULATED) > 59 mL/min/; GLUCOSE 181 mg/dL (70-99); SODIUM 131 MEQ/L (136-147); UREA NITROGEN (BUN) 9 mg/dL (9-23)
[2017-04-14 07:32] LABS: POTASSIUM 4.3 MEQ/L (3.7-5.4)
[2017-04-14 07:37] VITALS: BP 97/52
[2017-04-14 11:31] VITALS: BP 107/54
[2017-04-14 15:30] VITALS: BP 130/72
[2017-04-14 17:59] LABS: C DIFF TOXIN NEGATIVE (NEGATIVE)
[2017-04-14 19:44] VITALS: BP 111/62
[2017-04-15 00:21] VITALS: BP 108/60
[2017-04-15 04:32] VITALS: BP 110/72
[2017-04-15 04:50] LABS: BASOPHIL (%) 0.1 % (0-1); EOSINOPHIL (%) 0 % (0-5); HEMATOCRIT 34.4 % (36.0-46.0); HEMOGLOBIN 11.9 G/DL (11.9-15.5); IMMATURE GRANULOCYTE (%) 0.5 % (0.0-0.7); LYMPHOCYTE (%) 4.9 % (15-42); LYMPHOCYTE COUNT 0.7 K/uL (1.0-2.8); MCH 30.8 PG (29.0-34.0); MCHC 34.6 G/DL (30.0-36.0); MCV 89.1 FL (83-99); MONOCYTE (%) 4.7 % (3-12); MONOCYTE COUNT 0.6 K/uL (0-0.8); NEUTROPHIL (%) 89.8 % (45-76); NEUTROPHIL COUNT 12.1 K/uL (1.8-6.4); RBC DIS.WIDTH-CV 14.8 % (11.8-14.6); RBC DIS.WIDTH-SD 47.7 % (39-53); RED BLOOD COUNT 3.86 M/uL (3.80-5.20); WHITE BLOOD COUNT 13.5 K/uL (4.1-10.2)
[2017-04-15 04:54] LABS: PLATELET COUNT 192 K/uL (156-360)
[2017-04-15 05:14] LABS: ALBUMIN 3.6 G/DL (3.2-4.8); ALKALINE PHOSPHATASE 36 IU/L (3-129); ALT (GPT) 13 IU/L (3-49); AST (GOT) 21 IU/L (2-34); CHLORIDE 101 MEQ/L (99-109); CREATININE 0.7 MG/DL (0.6-1.3); GFR ESTIMATE (CALCULATED) > 59 mL/min/; GLUCOSE 126 mg/dL (70-99); POTASSIUM 4.5 MEQ/L (3.7-5.4); SODIUM 134 MEQ/L (136-147); TOTAL BILIRUBIN 0.2 MG/DL (0.0-1.0); TOTAL PROTEIN 5.5 G/DL (6.4-8.3); UREA NITROGEN (BUN) 8 mg/dL (9-23)
[2017-04-15 08:12] VITALS: BP 118/78
[2017-04-15 12:36] VITALS: BP 127/72
[2017-04-15] MEDS ORDERED: OSELTAMIVIR PHO75 MG PO (12:49)
[2017-04-15] MEDS ORDERED: LEVOFLOXACIN500 MG PO (12:49)
[2017-04-15] MEDS ORDERED: PREDNISONE10 MG PO (12:51)
== END 2017-04-15 14:43 | disposition home or self-care (01) | DRG 190 ==
LOC: EME → EDBD 19:12 → EDOF 22:00 → 2EAST 22:00 → ENRESERV 22:01 → 2EAST 23:47 → ENPENDDIS 04-15 → 2EAST 04-15 14:43
PROVIDERS: Emergency Medicine; Hospitalist
DX: J44.1 Chronic obstructive pulmonary disease with (acute) exacerbation (principal); J96.02 Acute respiratory failure with hypercapnia; J96.01 Acute respiratory failure with hypoxia; J10.1 Influenza due to other identified influenza virus with other respiratory manifestations; E87.1 Hypo-osmolality and hyponatremia; R19.7 Diarrhea, unspecified; E87.2 Acidosis; E87.6 Hypokalemia; I10 Essential (primary) hypertension; E78.5 Hyperlipidemia, unspecified; M79.7 Fibromyalgia; I25.10 Atherosclerotic heart disease of native coronary artery without angina pectoris; G43.909 Migraine, unspecified, not intractable, without status migrainosus; K21.9 Gastro-esophageal reflux disease without esophagitis; I25.2 Old myocardial infarction; Z95.1 Presence of aortocoronary bypass graft; Z95.5 Presence of coronary angioplasty implant and graft; F17.200 Nicotine dependence, unspecified, uncomplicated; Z79.02 Long term (current) use of antithrombotics/antiplatelets; Z79.82 Long term (current) use of aspirin; Z90.710 Acquired absence of both cervix and uterus; Z82.49 Family history of ischemic heart disease and other diseases of the circulatory system; Z82.0 Family history of epilepsy and other diseases of the nervous system
CPT/HCPCS: 36600; 71045; 71275; 80048; 80053; 82803; 84484; 85025; 85027; 87070; 87205; 87493; 87502; 93005; 94640; 94640 76; 94644; 94799; 99202; 99281; 99285; J1644; J2060; J2920; J2930; J7030; J7644

== ENCOUNTER 2017-08-30 22:51 | Inpatient (IN) | payer OTHER ==
[~2017-08-30] VITALS: Ht 154.9 cm; Wt 49.9 kg
[~2017-08-30 22:51] MED LIST changes: +ALEVE220 MG PO; +OSELTAMIVIR PHO75 MG PO; -SYMBICORT60 INHALA1 IH; +TYLENOL EXTRA500 MG PO; +VENTOLIN HFA18 GM IH; +VOLTAREN75 MG PO; +ZANTAC150 MG PO
[2017-08-30 23:10] LABS: HEMATOCRIT 37.4 % (36.0-46.0); HEMOGLOBIN 12.8 G/DL (11.9-15.5); MCH 30.5 PG (29.0-34.0); MCHC 34.2 G/DL (30.0-36.0); MCV 89.3 FL (83-99); PLATELET COUNT 309 K/uL (156-360); RBC DIS.WIDTH-CV 13.4 % (11.8-14.6); RBC DIS.WIDTH-SD 43.9 % (39-53); RED BLOOD COUNT 4.19 M/uL (3.80-5.20); WHITE BLOOD COUNT 8.9 K/uL (4.1-10.2)
[2017-08-30 23:16] LABS: BASE EXCESS 2.8 mEq/L (-3 to +3); BICARBONATE 30.1 mEq/L (22-26); CARBOXY HGB 3.6 % (0-5); COMMENTS - BLOOD GASES C+A+; DEVICE NIV; FI02 60 %; METHEMOGLOBIN 0.8 % (0-1.5); MODE SPONT; PCO2 57 mm Hg (35-45); PEEP 8 CM/H20; PO2 352 mm Hg (80-100); PRES. SUPPORT 12 CM/H2O; SITE LR; TOTAL RESP RATE 20 resp/min; pH 7.33 (7.35-7.45)
[2017-08-30 23:22] LABS: ALBUMIN 4.1 g/dL (3.2-4.8)
[2017-08-30 23:23] LABS: CHLORIDE 92 mEq/L (99-109); POTASSIUM 3.1 mEq/L (3.7-5.4); SODIUM 135 mEq/L (136-147)
[2017-08-30 23:25] LABS: GLUCOSE 193 mg/dL (70-99); TOTAL PROTEIN 6.4 g/dL (6.4-8.3)
[2017-08-30 23:27] LABS: TOTAL BILIRUBIN 0.3 mg/dL (0.0-1.0)
[2017-08-30 23:28] LABS: ALKALINE PHOSPHATASE 72 IU/L (3-129)
[2017-08-30 23:29] LABS: CREATININE 0.8 mg/dL (0.6-1.3); GFR ESTIMATE (CALCULATED) > 59 mL/min/
[2017-08-30 23:30] LABS: AST (GOT) 21 IU/L (2-34); UREA NITROGEN (BUN) 11 mg/dL (9-23)
[2017-08-30 23:32] LABS: ALT (GPT) 13 IU/L (3-49); LIPASE 26 U/L (1.0-51.0)
[2017-08-30 23:34] LABS: TROP-I INTERPRETATION NEGATIVE; TROPONIN-I 0.02 ng/mL (0.0-0.30)
[2017-08-31] VITALS (24 sets, daily range): BP systolic 82–135; BP diastolic 50–92
[2017-08-31] MEDS ORDERED: HYDROCHLOROTHIA25 MG PO (00:02)
[2017-08-31 06:09] LABS: CHLORIDE 98 MEQ/L (99-109); CREATININE 0.6 MG/DL (0.6-1.3); GFR ESTIMATE (CALCULATED) > 59 mL/min/; GLUCOSE 173 mg/dL (70-99); SODIUM 134 MEQ/L (136-147); UREA NITROGEN (BUN) 11 mg/dL (9-23)
[2017-08-31 06:11] LABS: HEMATOCRIT 31.8 % (36.0-46.0); HEMOGLOBIN 10.7 G/DL (11.9-15.5); MCH 30.1 PG (29.0-34.0); MCHC 33.6 G/DL (30.0-36.0); MCV 89.3 FL (83-99); PLATELET COUNT 199 K/uL (156-360); RBC DIS.WIDTH-CV 13.4 % (11.8-14.6); RBC DIS.WIDTH-SD 44.2 % (39-53); RED BLOOD COUNT 3.56 M/uL (3.80-5.20); WHITE BLOOD COUNT 5.8 K/uL (4.1-10.2)
[2017-08-31 06:14] LABS: POTASSIUM 3.8 MEQ/L (3.7-5.4)
[2017-09-01] VITALS (12 sets, daily range): BP systolic 101–132; BP diastolic 57–76
[2017-09-01 06:43] LABS: HEMATOCRIT 30.8 % (36.0-46.0); HEMOGLOBIN 10.3 G/DL (11.9-15.5); MCH 30.3 PG (29.0-34.0); MCHC 33.4 G/DL (30.0-36.0); MCV 90.6 FL (83-99); PLATELET COUNT 232 K/uL (156-360); RBC DIS.WIDTH-CV 14.2 % (11.8-14.6); RBC DIS.WIDTH-SD 47.2 % (39-53); WHITE BLOOD COUNT 11.5 K/uL (4.1-10.2)
[2017-09-01 06:46] LABS: CHLORIDE 102 MEQ/L (99-109); CREATININE 0.6 MG/DL (0.6-1.3); GFR ESTIMATE (CALCULATED) > 59 mL/min/; POTASSIUM 4.2 MEQ/L (3.7-5.4); SODIUM 139 MEQ/L (136-147); UREA NITROGEN (BUN) 9 mg/dL (9-23)
[2017-09-01 06:47] LABS: GLUCOSE 117 mg/dL (70-99)
[2017-09-01 08:51] LABS: D-DIMER ELISA < 150.00 ng/mLDDU (<230)
[2017-09-02] VITALS (8 sets, daily range): BP systolic 138–190; BP diastolic 72–87
[2017-09-02 06:15] LABS: BASOPHIL (%) 0.1 % (0-1); EOSINOPHIL (%) 0.1 % (0-5); HEMATOCRIT 33.4 % (36.0-46.0); IMMATURE GRANULOCYTE (%) 0.7 % (0.0-0.7); LYMPHOCYTE (%) 2.9 % (15-42); LYMPHOCYTE COUNT 0.4 K/uL (1.0-2.8); MCH 30.6 PG (29.0-34.0); MCHC 32.9 G/DL (30.0-36.0); MCV 92.8 FL (83-99); MONOCYTE (%) 3.3 % (3-12); MONOCYTE COUNT 0.5 K/uL (0-0.8); NEUTROPHIL (%) 92.9 % (45-76); NEUTROPHIL COUNT 12.9 K/uL (1.8-6.4); PLATELET COUNT 242 K/uL (156-360); RBC DIS.WIDTH-CV 14.2 % (11.8-14.6); RBC DIS.WIDTH-SD 48.4 % (39-53); WHITE BLOOD COUNT 13.9 K/uL (4.1-10.2)
[2017-09-02 06:39] LABS: CHLORIDE 103 MEQ/L (99-109); CREATININE 0.6 MG/DL (0.6-1.3); GFR ESTIMATE (CALCULATED) > 59 mL/min/; GLUCOSE 117 mg/dL (70-99); MAGNESIUM 2.2 mg/dl (1.3-2.7); PHOSPHORUS 4.3 mg/dL (2.5-4.9); POTASSIUM 4.5 MEQ/L (3.7-5.4); SODIUM 141 MEQ/L (136-147); UREA NITROGEN (BUN) 13 mg/dL (9-23)
[2017-09-03 06:19] LABS: HEMATOCRIT 34.5 % (36.0-46.0); HEMOGLOBIN 11.2 G/DL (11.9-15.5); MCH 29.7 PG (29.0-34.0); MCHC 32.5 G/DL (30.0-36.0); MCV 91.5 FL (83-99); PLATELET COUNT 232 K/uL (156-360); RBC DIS.WIDTH-CV 13.9 % (11.8-14.6); RBC DIS.WIDTH-SD 47.2 % (39-53); RED BLOOD COUNT 3.77 M/uL (3.80-5.20)
[2017-09-03 06:37] LABS: CHLORIDE 102 MEQ/L (99-109); CREATININE 0.5 MG/DL (0.6-1.3); GFR ESTIMATE (CALCULATED) > 59 mL/min/; GLUCOSE 119 mg/dL (70-99); MAGNESIUM 2.3 mg/dl (1.3-2.7); PHOSPHORUS 3.7 mg/dL (2.5-4.9); POTASSIUM 4.1 MEQ/L (3.7-5.4); SODIUM 141 MEQ/L (136-147); UREA NITROGEN (BUN) 13 mg/dL (9-23)
[2017-09-03 07:12] VITALS: BP 136/75
[2017-09-03 11:33] VITALS: BP 126/68
[2017-09-03 19:42] VITALS: BP 149/77
[2017-09-03 23:56] VITALS: BP 143/86
[2017-09-04 04:01] VITALS: BP 159/91
[2017-09-04 05:51] LABS: HEMATOCRIT 35.4 % (36.0-46.0); HEMOGLOBIN 11.5 G/DL (11.9-15.5); MCH 29.3 PG (29.0-34.0); MCHC 32.5 G/DL (30.0-36.0); MCV 90.3 FL (83-99); PLATELET COUNT 268 K/uL (156-360); RBC DIS.WIDTH-CV 13.8 % (11.8-14.6); RBC DIS.WIDTH-SD 45.6 % (39-53); RED BLOOD COUNT 3.92 M/uL (3.80-5.20); WHITE BLOOD COUNT 7.2 K/uL (4.1-10.2)
[2017-09-04 06:20] LABS: CHLORIDE 101 MEQ/L (99-109); CREATININE 0.6 MG/DL (0.6-1.3); GFR ESTIMATE (CALCULATED) > 59 mL/min/; GLUCOSE 133 mg/dL (70-99); MAGNESIUM 2.3 mg/dl (1.3-2.7); POTASSIUM 4.2 MEQ/L (3.7-5.4); SODIUM 141 MEQ/L (136-147); UREA NITROGEN (BUN) 14 mg/dL (9-23)
[2017-09-04 07:41] VITALS: BP 152/84
[2017-09-04 16:00] VITALS: BP 140/73
[2017-09-04 23:26] VITALS: BP 148/70
[2017-09-05 07:22] VITALS: BP 147/76
[2017-09-05 07:48] LABS: HEMATOCRIT 33.8 % (36.0-46.0); HEMOGLOBIN 11.2 G/DL (11.9-15.5); MCH 29.9 PG (29.0-34.0); MCHC 33.1 G/DL (30.0-36.0); MCV 90.1 FL (83-99); PLATELET COUNT 280 K/uL (156-360); RBC DIS.WIDTH-CV 13.7 % (11.8-14.6); RBC DIS.WIDTH-SD 44.6 % (39-53); RED BLOOD COUNT 3.75 M/uL (3.80-5.20); WHITE BLOOD COUNT 7.4 K/uL (4.1-10.2)
[2017-09-05 08:30] LABS: CHLORIDE 103 MEQ/L (99-109); CREATININE 0.6 MG/DL (0.6-1.3); GFR ESTIMATE (CALCULATED) > 59 mL/min/; GLUCOSE 121 mg/dL (70-99); MAGNESIUM 2.3 mg/dl (1.3-2.7); PHOSPHORUS 3.1 mg/dL (2.5-4.9); POTASSIUM 4.4 MEQ/L (3.7-5.4); SODIUM 141 MEQ/L (136-147); UREA NITROGEN (BUN) 14 mg/dL (9-23)
[2017-09-05 15:49] VITALS: BP 118/71
[2017-09-06 00:08] VITALS: BP 169/76
[2017-09-06 06:33] LABS: HEMATOCRIT 32.3 % (36.0-46.0); HEMOGLOBIN 10.6 G/DL (11.9-15.5); MCH 29.5 PG (29.0-34.0); MCHC 32.8 G/DL (30.0-36.0); PLATELET COUNT 262 K/uL (156-360); RBC DIS.WIDTH-CV 13.8 % (11.8-14.6); RED BLOOD COUNT 3.59 M/uL (3.80-5.20); WHITE BLOOD COUNT 7.7 K/uL (4.1-10.2)
[2017-09-06 06:55] LABS: CHLORIDE 103 MEQ/L (99-109); CREATININE 0.6 MG/DL (0.6-1.3); GFR ESTIMATE (CALCULATED) > 59 mL/min/; GLUCOSE 106 mg/dL (70-99); MAGNESIUM 2.2 mg/dl (1.3-2.7); PHOSPHORUS 2.7 mg/dL (2.5-4.9); POTASSIUM 3.9 MEQ/L (3.7-5.4); SODIUM 142 MEQ/L (136-147); UREA NITROGEN (BUN) 13 mg/dL (9-23)
[2017-09-06 07:42] VITALS: BP 132/73
[2017-09-06] MEDS ORDERED: PREDNISONE20 MG PO (13:52)
[2017-09-06] MEDS ORDERED: LEVOFLOXACIN750 MG PO (13:53)
[2017-09-06 15:17] VITALS: BP 136/86
== END 2017-09-06 17:09 | disposition home health service (06) | DRG 190 ==
LOC: EME → EDBD 22:51 → EDOF 08-31 01:26 → 4WEST 08-31 01:26 → 5SOUTH 08-31 01:26 → ENRESERV 08-31 01:27 → ENRESERVDT 08-31 02:16 → ENRESERVTM 08-31 02:16 → 4WEST 08-31 03:01 → ENRESERV 09-01 07:33 → 5SOUTH 09-01 12:20
PROVIDERS: Emergency Medicine; Internal Medicine Critical Care Medicine; Specialist
PROC: 5A09357 Assistance with Respiratory Ventilation, Less than 24 Consecutive Hours, Continuous Positive Airway Pressure (ICD-10-PCS; principal; 2017-08-31)
DX: J44.1 Chronic obstructive pulmonary disease with (acute) exacerbation (principal); J96.22 Acute and chronic respiratory failure with hypercapnia; J44.0 Chronic obstructive pulmonary disease with (acute) lower respiratory infection; J20.9 Acute bronchitis, unspecified; E87.2 Acidosis; I27.20 Pulmonary hypertension, unspecified; E87.70 Fluid overload, unspecified; E87.6 Hypokalemia; R73.9 Hyperglycemia, unspecified; I10 Essential (primary) hypertension; I25.10 Atherosclerotic heart disease of native coronary artery without angina pectoris; E78.5 Hyperlipidemia, unspecified; M79.7 Fibromyalgia; K21.9 Gastro-esophageal reflux disease without esophagitis; F17.210 Nicotine dependence, cigarettes, uncomplicated; I25.2 Old myocardial infarction; Z95.1 Presence of aortocoronary bypass graft; Z79.02 Long term (current) use of antithrombotics/antiplatelets; Z79.82 Long term (current) use of aspirin
CPT/HCPCS: 36600; 71045; 80048; 80053; 82803; 82948; 83690; 83735; 83880; 84100; 84484; 85025; 85027; 85379; 87449; 87641; 93005; 93306; 93970; 94002; 94003; 94640; 94644; 94760; 94799; 97530 GP; 99281; 99285; J1644; J1885; J1956; J2060; J2270; J2930; J3480; J7030; J7120; J7512; S0028; S0073